=== PATIENT | female | born 1950 | race Caucasian/White ===

== ENCOUNTER 2022-04-08 06:09 | Emergency (ER) | payer MEDICARE, OTHER ==
[~2022-04-08] VITALS: Ht 172.7 cm; Wt 91.0 kg
[2022-04-08] MEDS ORDERED: IBUPROFEN 600MG TABLET PO ONE (06:30)
[2022-04-08 11:51] VITALS: BP 113/66
== END 2022-04-08 11:54 | disposition home or self-care (01) ==
LOC: ER 06:09
DX: S80.01XA Contusion of right knee, initial encounter (principal); S10.93XA Contusion of unspecified part of neck, initial encounter; W01.0XXA Fall on same level from slipping, tripping and stumbling without subsequent striking against object, initial encounter; Y93.89 Activity, other specified; Y92.89 Other specified places as the place of occurrence of the external cause; Y99.8 Other external cause status; F31.9 Bipolar disorder, unspecified; F20.9 Schizophrenia, unspecified; Z88.2 Allergy status to sulfonamides
CPT/HCPCS: 72040; 73560; 93005; 99285

== ENCOUNTER 2022-04-10 17:31 | Inpatient (IN) | payer MEDICARE, OTHER ==
[~2022-04-10] VITALS: Ht 165.1 cm; Wt 81.6 kg
[2022-04-10] MEDS ORDERED: ACETAMINOPHEN 325MG TABLET PO STA (17:52)
[2022-04-10] MEDS ORDERED: SODIUM CHLORIDE 0.9% 500 ML IV ONE (18:00)
[2022-04-10 18:51] LABS: MEAN CORPUSCULAR HEMOGLOBIN 19.8 pg (28.0-32.0); MEAN CORPUSCULAR VOLUME 66.8 fL (81.0-99.0); PLATELET 386 x1000/uL (130-400); RED BLOOD CELL COUNT 3.28 mill/uL (4.2-5.4); RED CELL DISTRIBUTION WIDTH 21.6 % (11.6-14.6)
[2022-04-10 18:54] LABS: CHLORIDE 117 mEq/L (98-107)
[2022-04-10 18:56] LABS: CLARITY URINE CLEAR (CLEAR); COLOR URINE DARK YELLOW (YELLOW); KETONES URINE TRACE (NEGATIVE); LEUKOCYTE ESTERASE URINE TRACE (NEGATIVE); NITRITE URINE NEGATIVE (NEGATIVE); OCCULT BLOOD URINE NEGATIVE (NEGATIVE); PH URINE 5.5 (4.5-8.0); PROTEIN URINE 2+ (NEGATIVE); SPECIFIC GRAVITY URINE 1.027 (1.005-1.030); UROBILINOGEN URINE 0.2 E.U./dL (0.2-1.0)
[2022-04-10 18:58] LABS: INR 1.1; PROTHROMBIN TIME 11.4 sec (9.6-11.0)
[2022-04-10 19:04] LABS: CREATINE KINASE 641 IU/L (26-192)
[2022-04-10] MEDS ORDERED: CEFTRIAXONE 1 G PREMIX 50 ML IV ONE (19:15)
[2022-04-10] MEDS ORDERED: SODIUM CHLORIDE 0.9% 1,000 ML IV ONE (19:15)
[2022-04-10 19:16] LABS: HEMOGLOBIN. 6.5 g/dL (12.0-16.0)
[2022-04-10 19:54] LABS: TOTAL IRON BINDING CAPACITY 298 ug/dL (250-450)
[2022-04-10 21:54] LABS: PLATELET ESTIMATE NORMAL
[2022-04-10] MEDS ORDERED: GUAIFENESIN 200MG/10ML SUGAR FREE UDC PO PRN (22:30)
[2022-04-10] MEDS ORDERED: MAGNESIUM/ALUMINUM HYDROXIDE/SIMETHICONE 30ML UDC PO PRN (22:30)
[2022-04-10] MEDS ORDERED: CLONIDINE 0.1MG TABLET PO PRN (22:30)
[2022-04-10] MEDS ORDERED: CEFTRIAXONE 1 G PREMIX 50 ML IV SCH (22:30)
[2022-04-10] MEDS ORDERED: ONDANSETRON HCL 4MG/2ML INJ IV PRN (22:30)
[2022-04-10] MEDS ORDERED: DIPHENHYDRAMINE 50MG/ML VIAL IV PRN (22:30)
[2022-04-10] MEDS ORDERED: ACETAMINOPHEN 325MG TABLET PO PRN (22:30)
[2022-04-10] MEDS ORDERED: ZOLPIDEM TARTRATE 5MG TABLET PO PRN (22:30)
[2022-04-10] MEDS: DEXT 5%/0.45% NACL 1000ML 1,000 ML IV SCH (22:31)
[2022-04-11] MEDS: IRON SUCROSE COMPLEX 100 MG/5 ML ML IV SCH (00:53)
[2022-04-11 01:15] VITALS: BP 119/67
[2022-04-11 05:54] VITALS: BP 125/70
[2022-04-11] MEDS: DEXT 5%/0.45% NACL 1000ML 1,000 ML IV SCH ×3 (06:14→22:18)
[2022-04-11 08:00] VITALS: BP 127/67
[2022-04-11] MEDS: ACETAMINOPHEN 325MG TABLET PO PRN (11:18)
[2022-04-11 12:00] VITALS: BP 126/97
[2022-04-11 16:00] VITALS: BP 129/70
[2022-04-11 20:00] VITALS: BP 132/82
[2022-04-11 22:11] LABS: BASOPHILS % 1.1 % (0.0-2.0); EOSINOPHILS % 1.3 % (0.0-5.0); HEMATOCRIT. 25.1 % (36.0-48.0); HEMOGLOBIN. 7.4 g/dL (12.0-16.0); LYMPHOCYTES % 12.2 % (20.0-50.0); MEAN CORPUSCULAR VOLUME 71.7 fL (81.0-99.0); MONOCYTES % 8.7 % (2.0-8.0); NEUTROPHILS % 76.7 % (40.0-76.0); PLATELET 309 x1000/uL (130-400); RED CELL DISTRIBUTION WIDTH 23.2 % (11.6-14.6)
[2022-04-11] MEDS: CEFTRIAXONE 1,000 MG in DEXTROSE 5% WATER 50 ML IV SCH (22:16)
[2022-04-11 22:35] LABS: CHLORIDE 114 mEq/L (98-107)
[2022-04-11 22:48] LABS: PLATELET ESTIMATE NORMAL
[2022-04-12] VITALS: BP 118/76
[2022-04-12] MEDS: IRON SUCROSE COMPLEX 100 MG/5 ML ML IV SCH ×2 (00:48→23:30)
[2022-04-12 04:00] VITALS: BP 120/70
[2022-04-12] MEDS: DEXT 5%/0.45% NACL 1000ML 1,000 ML IV SCH ×3 (06:44→22:30)
[2022-04-12 08:00] VITALS: BP 146/82
[2022-04-12] MEDS: ACETAMINOPHEN 325MG TABLET PO PRN ×2 (08:59→16:36)
[2022-04-12 12:00] VITALS: BP 160/64
[2022-04-12 16:00] VITALS: BP 144/64
[2022-04-12 20:00] VITALS: BP 164/62
[2022-04-12] MEDS: CEFTRIAXONE 1,000 MG in DEXTROSE 5% WATER 50 ML IV SCH ×2 (20:00→21:55)
[2022-04-13] VITALS: BP 150/72
[2022-04-13 04:00] VITALS: BP 148/89
[2022-04-13 08:00] VITALS: BP 158/71
[2022-04-13 12:00] VITALS: BP 149/84
[2022-04-13 16:00] VITALS: BP 125/75
[2022-04-13 20:00] VITALS: BP 134/65
[2022-04-14] VITALS: BP 131/69
[2022-04-14 04:00] VITALS: BP 129/71
[2022-04-14 08:00] VITALS: BP 141/81
[2022-04-14 12:00] VITALS: BP 140/73
[2022-04-14 16:00] VITALS: BP 110/74
[2022-04-14 20:00] VITALS: BP 143/92
[2022-04-15] VITALS: BP 139/81
[2022-04-15 04:00] VITALS: BP 132/77
[2022-04-15 09:06] VITALS: BP 160/89
[2022-04-15] MEDS ORDERED: CLON2TAB21 PO (14:26)
[2022-04-15] MEDS ORDERED: MULT-1146 PO (14:26)
[2022-04-15] MEDS ORDERED: OLAN5TAB39 PO (14:26)
[2022-04-15] MEDS ORDERED: CHOL400D7 PO (14:26)
[2022-04-15] MEDS ORDERED: QUETIAPINE PO ×2 (14:26)
[2022-04-15] MEDS ORDERED: PANT40SU PO (14:26)
[2022-04-15] MEDS ORDERED: [UNRECOGNIZED DRUG - CODE] PO (14:26)
[2022-04-15 20:00] VITALS: BP 147/78
[2022-04-16 00:06] VITALS: BP 154/75
[2022-04-16] MEDS: CLONAZEPAM 1MG TABLET PO SCH ×2 (00:45→09:35)
[2022-04-16 04:30] VITALS: BP 144/77
[2022-04-16 06:09] VITALS: BP 144/77
[2022-04-16 08:00] VITALS: BP 136/81
== END 2022-04-16 13:47 | DRG 871 ==
LOC: ER 17:31 → EDBEDREQTM 18:38 → EDBEDREQ 18:38 → 6WST 19:19 → EDBEDREQTM 20:29 → EDBEDREQ 20:29 → ENRESERV 23:10
PROVIDERS: ADMIT Internal Medicine; ATTEND Internal Medicine
PROC: 30233N1 Transfusion of Nonautologous Red Blood Cells into Peripheral Vein, Percutaneous Approach (ICD-10-PCS; principal; 2022-04-10)
DX: A41.9 Sepsis, unspecified organism (principal); G93.41 Metabolic encephalopathy; E87.0 Hyperosmolality and hypernatremia; M62.82 Rhabdomyolysis; N17.9 Acute kidney failure, unspecified; N39.0 Urinary tract infection, site not specified; D50.9 Iron deficiency anemia, unspecified; F20.9 Schizophrenia, unspecified; F31.9 Bipolar disorder, unspecified; I50.9 Heart failure, unspecified; R13.10 Dysphagia, unspecified; R29.6 Repeated falls; R26.9 Unspecified abnormalities of gait and mobility; Z88.8 Allergy status to other drugs, medicaments and biological substances; Z88.2 Allergy status to sulfonamides
CPT/HCPCS: 36415; 71045; 72040; 73521; 73560; 73630; 80048; 80053; 81003; 82550; 83540; 83550; 83605; 83880; 84484; 85025; 85044; 86850; 86900; 86920; 93005; 97162; 99291; J0696; J7030; J7040; J7060; P9016